=== PATIENT | female | born 1940 | race Hispanic/Latino ===

== ENCOUNTER → 2017-10-27 | Day surgery (SDC) | payer MEDICARE ==
--- NOTE | 2017-10-24 13:48 | Diagnostic Imaging Report ---
PROCEDURE:CHEST 2 VIEWS TECHNIQUE:PA and lateral chest INDICATION:Preoperative evaluation COMPARISON:None. FINDINGS: Lungs are clear and symmetrically hyperinflated. No pleural effusions. Normal heart size, mediastinal contour and pulmonary vasculature. Mild aortic atherosclerosis. Intact skeleton. CONCLUSION: Hyperinflation suggesting air trapping from COPD/asthma. Otherwise, no acute abnormality. Dictated by: Juan Munoz M.D. on 10/24/2017 at 13:51 Electronically approved by: Juan Munoz M.D. on 10/24/2017 at 13:51
[~2017-10-27] MED LIST: ACETAMINOPHEN 1000 MG/100 ML IV ONE; BUPIVACAINE HCL 0.5% INJ 30 ML VIAL INJ ONE; CEFAZOLIN SOD 2 GM/D5W 50ML 50 ML IV ONE; DEXAMETHASONE SOD PHOS INJ 4 MG/ML VIAL ONE; EPHEDRINE SULFATE INJ 50 MG/10 ML SYR ONE; FENTANYL CITRATE/PF 100MCG/2 ML INJ ONE; KETOROLAC TROMETHAMINE 30 MG/ML VIAL ONE; LIDOCAINE HCL 2% LOCAL INJ 5 ML SDV VIAL INJ ONE; MIDAZOLAM HCL 2 MG/2 ML VIAL ONE; MUPIROCIN 2% OINT 22 GM TUBE ONE; ONDANSETRON HCL INJ 2 MG/ML VIAL ONE; OXYBUTYNIN PO; PROPOFOL IV EMULSION 10 MG/ML 20 ML VIAL ONE; SEVOFLURANE INHAL SOLN 250 ML PEN BTL ONE
--- OUTSIDE RECORDS SUMMARY | 2017-10-27 06:03 | XMS REPORT ---
Author Author [facility] Address Unknown Phone Unavailable Care Team Providers Care Instrumentation Supervisor Name Role Phone ROSHNI BOWDEN Unavailable Unavailable Problems This patient has no known problems. Allergies, Adverse Reactions, Alerts This patient has no known allergies or adverse reactions. Medications This patient has no known medications. Results Test Description Test Time Test Comments Text Results Atomic Results Result Comments CHEST 2 VIEWS [place] [id number] [place] [id number] Patient Name: AMANDA PLATT MR # : [id number] : 1940 Age/Sex: 76/F Req #: [id number] Adm Physician: Ordered by: ROSHNI BOWDEN DPM Report #: [id number] Location: OR Room/Bed: Procedure: [id number] DX/CHEST 2 VIEWS Exam Date: 10/24/17 Exam Time: 1330 REPORT STATUS: Signed PROCEDURE: CHEST 2 VIEWS TECHNIQUE: PA and lateral chest INDICATION: Preoperative evaluation COMPARISON: None. FINDINGS: Lungs are clear and symmetrically hyperinflated. No pleural effusions. Normal heart size, mediastinal contour and pulmonary vasculature. Mild aortic atherosclerosis. Intact skeleton. CONCLUSION: Hyperinflation suggesting air trapping from COPD/asthma. Otherwise , no acute abnormality. Dictated by: Nadeem Munoz M.D. on 10/24/2017 at 13:51 Electronically approved by: Nadeem Munoz M.D. on 10/24/2017 at 13:51 Dictated By: NADEEM MUNOZ MD 1351 Transcribed By: JV on 10/24/17 1351 COPY TO: ROSHNI BOWDEN DPM
--- NOTE | 2017-10-27 13:36 | Operative Report ---
DATE OF PROCEDURE: October 27, 2017 PREOPERATIVE DIAGNOSES 1. 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 2. Plantarflexed 2nd metatarsal with osteopenia and osteoarthritis, 2nd metatarsophalangeal joint, right foot. 3. Rigidly contracted hammertoe and hammertoe overlapping the 2nd digit overlapping the hallux, right foot. 4. Dorsally dislocated 2nd digit at the metatarsophalangeal joint of the right foot. POSTOPERATIVE DIAGNOSES 1. 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 2. Plantarflexed 2nd metatarsal with osteopenia and osteoarthritis, 2nd metatarsophalangeal joint, right foot. 3. Rigidly contracted hammertoe and hammertoe overlapping the 2nd digit overlapping the hallux, right foot. 4. Dorsally dislocated 2nd digit at the metatarsophalangeal joint of the right foot. TITLE OF OPERATION 1. A fusion of the 1st metatarsophalangeal joint of the right foot. 2. A Buddy osteotomy of the 2nd metatarsal, right foot. 3. Arthrodesis, 2nd interphalangeal joint, right foot. 4. Open reduction with internal fixation and pinning, 2nd metatarsophalangeal joint, right foot. ANESTHESIA: General endotracheal. HEMOSTASIS: A right thigh tourniquet to 350 mmHg. PROCEDURE IN DETAIL: The patient was taken to the operating room in a mildly sedated state and placed upon the operating table in the supine position. Following induction of general anesthetic, the right lower extremity was elevated to 60 degrees to exsanguinate before inflating the pneumatic thigh tourniquet at 350 mmHg to create hemostasis. The right lower extremity was placed upon the operating table prior to performing the following procedures: Procedure #1: Fusion of the 1st metatarsophalangeal joint of the right foot. Incision was made overlying the dorsomedial aspect of the 1st metatarsophalangeal joint of the right foot. The incision was deepened via sharp and blunt dissection down to the level of the dorsal capsular structure. Care was taken to identify and retract all vital structures encountered. The head of the 1st metatarsal was delivered into the surgical site utilizing an oscillating saw. Conjoined tendon of the adductor hallucis muscle was identified and tenotomized. Further decompression and dissection of the joint revealed a [id number] articulation of the 1st met head and 2nd met base. Utilizing cup and cone reamers, the remaining cartilaginous surfaces were remodeled and removed. Medial eminence was remodeled and removed as well utilizing the oscillating saw. The digit was pinned in the appropriate alignment. The plate was applied to the dorsum of the foot and the pin removed. A ramp was used for compression with a [employer] dorsal tubular plate. This having been accomplished and the area fully fixated with excellent fixation noted, irrigation and closure with 3-0 Vicryl, 4-0 Vicryl and 4-0 nylon. Attention was then directed to the 2nd metatarsophalangeal joint for the Buddy osteotomy. A linear longitudinal incision was made overlying the dorsal aspect of 2nd met head of the right foot. The incision was deepened via sharp and blunt dissection down to the level of the dorsal capsular structure. Care was taken to identify and retract all vital structures encountered. Head of the 2nd metatarsal was delivered into the surgical site and remodeled utilizing an oscillating saw. The tendon itself was lengthened at that joint level, and the head was noted to be significantly plantarflexed and the 2nd digit subluxed and dislocated dorsal-correa over that. A McGlamry elevator was used to free the head. A [id number]-gbc-muhkwjk Buddy osteotomy was placed, which decompressed and shortened the joint. Two popoff screws were used and a 3rd K-wire for fixation. The area was irrigated with copious amounts of sterile saline solution. Excellent fixation was noted. The head was remodeled with a rongeur. Attention was then directed to the 2nd digit. A linear longitudinal incision was made at the 2nd digit at the proximal interphalangeal joint level to allow for arthrodesis of the right foot. A rigidly contracted and subluxed 2nd digit had made it impossible for her to tolerate anything above. The linear longitudinal incision performed made a healthy, viable dissection platform. The 2nd digit was remodeled with an oscillating saw and rotary bur, pinned in the appropriate alignment in a retrograde technique, and ultimately pin was advanced across the recently remodeled and stabilized 2nd digit of the right foot. The deep closure with 3-0 Vicryl, skin closure with 4-0 Vicryl and 4-0 nylon. The areas of surgery were all blocked with 0.5 Marcaine and Decadron LA. ORIF of the 2nd metatarsophalangeal joint was performed by driving the pin from the 2nd digit down deep into the 2nd met head and base to hold proper alignment at the metatarsophalangeal joint. Release of the pneumatic thigh tourniquet showed a normal hyperemic flush to all digits of the right foot. The patient left the operating room with vital signs stable and in apparent satisfactory condition, having tolerated both anesthetic and procedure very well. Job#: [id number]
== END | disposition home or self-care (01) ==
LOC: OR 06:01
PROVIDERS: ATTEND Podiatrist Foot Surgery
DX: M20.11 Hallux valgus (acquired), right foot (principal); M19.071 Primary osteoarthritis, right ankle and foot; M20.41 Other hammer toe(s) (acquired), right foot; M21.271 Flexion deformity, right ankle and toes; S93.124A Dislocation of metatarsophalangeal joint of right lesser toe(s), initial encounter; R25.2 Cramp and spasm; K21.9 Gastro-esophageal reflux disease without esophagitis; N39.0 Urinary tract infection, site not specified; F41.9 Anxiety disorder, unspecified; X58.XXXA Exposure to other specified factors, initial encounter; Z01.810 Encounter for preprocedural cardiovascular examination; Z01.818 Encounter for other preprocedural examination; Z87.891 Personal history of nicotine dependence
CPT/HCPCS: 28285; 28308; 28636; 28750; 71046; 93005; J1100; J1885; J2001; J2250; J2405; 76001

== ENCOUNTER → 2018-05-18 | Day surgery (SDC) | payer MEDICARE ==
[2018-05-16 11:23] LABS: BASOPHILS % 0.3 % (0.0-1.0); EOSINOPHILS % 0.6 % (0.0-6.0); HEMATOCRIT 40.4 % (34.2-44.1); HEMOGLOBIN 13.5 g/dL (12.0-16.0); LYMPHOCYTES # (AUTO) 1.7 (1.0-3.2); LYMPHOCYTES % 26.9 % (18.0-39.1); MEAN CORPUSCULAR HEMOGLOBIN 29.9 pg (28-32); MEAN CORPUSCULAR HGB CONC 33.4 g/dL (31-35); MEAN CORPUSCULAR VOLUME 89.4 fL (81-99); MONOCYTES # (AUTO) 0.6 (0.2-0.8); MONOCYTES % 9.5 % (4.4-11.3); NEUTROPHILS % 62.4 % (38.7-80.0); PLATELET COUNT 309 x10e3/uL (140-360); RED BLOOD COUNT 4.52 x10e6/uL (3.6-5.1); RED CELL DISTRIBUTION WIDTH 13.9 % (11.7-14.4)
[2018-05-16 11:41] LABS: ANION GAP 14.7 mmol/L (8-16); BLOOD UREA NITROGEN 21 mg/dL (7-26); BUN/CREATININE RATIO 24 (6-25); CALCIUM 9.9 mg/dL (8.4-10.2); CARBON DIOXIDE 24 mmol/L (22-29); CHLORIDE 100 mmol/L (98-107); CREATININE, SERUM 0.88 mg/dL (0.57-1.11); EST GLOMERULAR FILTRATION RATE > 60 ML/MIN (60-); GLUCOSE 94 mg/dL (74-118); POTASSIUM 4.7 mmol/L (3.5-5.1); SODIUM 134 mmol/L (136-145)
--- NOTE | 2018-05-16 12:21 | Diagnostic Imaging Report ---
EXAMINATION: CHEST 2 VIEWS COMPARISON: None FINDINGS: TUBES and LINES: None. LUNGS: Lungs are well inflated. Patchy left basilar atelectasis. There is no evidence of pneumonia or pulmonary edema. PLEURA: No pleural effusion or pneumothorax. HEART AND MEDIASTINUM: The cardiomediastinal silhouette is unremarkable. Atherosclerotic calcification within the aortic arch. BONES AND SOFT TISSUES: No acute osseous lesion. Soft tissues are unremarkable. UPPER ABDOMEN: No free air under the diaphragm. IMPRESSION: No acute radiographic abnormality. Signed by: Dr. Ligia Hou MD on 05/16/2018 12:17 PM
[~2018-05-18] MED LIST changes: -ACETAMINOPHEN 1000 MG/100 ML IV ONE; +BUPIVACAINE HCL 0.5% 10ML MPF VIAL INJ ONE; +CENTRUM CHEWAB1 EACH; -EPHEDRINE SULFATE INJ 50 MG/10 ML SYR ONE; +HYDRALAZINE HCL 20 MG/ML VIAL ONE; +METOCLOPRAMIDE HCL 10 MG/2ML VIAL ONE; +PHENYLEPHRINE HCL 1% 10 MG/ML VIAL ONE; +PROMETHAZINE HCL (IM) 25 MG/ML VIAL ONE
[2018-05-18 10:30] VITALS: BP 122/67
--- NOTE | 2018-05-21 13:30 | Operative Report ---
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 TITLE OF OPERATION: Fusion of 1st metatarsophalangeal joint, left foot. ANESTHESIA: General endotracheal. HEMOSTASIS: Thigh tourniquet at 250 mmHg. PROCEDURE IN DETAIL: The patient was taken to the operating room in a mildly state and placed upon the operating table in the supine position. Following induction of general anesthetic, the left lower extremity was elevated 60 degrees to exsanguinate before inflating the pneumatic thigh tourniquet to 350 mmHg for hemostasis. The left lower extremity was placed upon the operating table prior to performing for the following procedure. PROCEDURE #1: Fusion of the 1st metatarsophalangeal joint of the left foot. The incision was placed across the dorsal aspect of the 1st metatarsophalangeal joint of the left foot. Incision was deepened via sharp and blunt dissection down to the level of the dorsal capsular structure. Care was taken to identify and retract all vital structures encountered. The head of the 1st metatarsal was at the level of the surgical site. There were 2 bone screws within the 1st metatarsal head, which were removed, hex head [employer] style screws. The area was irrigated with copious amounts of sterile saline solution. The head of the 1st metatarsal, as well as the base of the proximal phalanx were denuded utilizing the [email or web address] joint prep apparatus. This having been accomplished, a saw was used to further remodel and straighten once that toe was put together in the appropriate alignment. Then K-wires were used to stabilize, and a dorsal plate with locking screws was applied. That plate measured and the dorsal MPJ fusion plate and the screws were a 3.5 x 12 locking, 3.5 x 14 locking times 2, a 3.5 x 16 screw lag style, and a 3.5 x 10 mm, and a 3.5 x 12 mm locking screw. The patient tolerated this well. The appropriate topical grafting was applied to cover the fusion site and allow the tissues to come back together. Human tissue allograft was used due to a void in this elderly patient. The extensor tendon was dorsally contracted tremendously and was realigned and applied appropriately. The deep closure was a combination of 3-0 Vicryl, 4-0 Vicryl and 4-0 nylon. The areas of surgery were then blocked with 0.5 Marcaine. Release of the pneumatic thigh tourniquet showed a normal hyperemic flush to all digits of the left foot. Patient left the operating room with vital signs stable and in apparent satisfactory condition after having tolerated both the anesthetic and procedure very well. Job#: [id number]
== END | disposition home or self-care (01) ==
LOC: OR 05:37
PROVIDERS: ATTEND Podiatrist Foot Surgery
DX: M19.072 Primary osteoarthritis, left ankle and foot (principal); M20.12 Hallux valgus (acquired), left foot; Z01.810 Encounter for preprocedural cardiovascular examination; Z01.812 Encounter for preprocedural laboratory examination; Z01.818 Encounter for other preprocedural examination
CPT/HCPCS: 28750; 36415; 71046; 76001; 80048; 85025; 93005; C1713 ×4; C1762; J0360; J0690; J1100; J1885; J2001; J2250; J2370; J2405; J2550; J2704; J2765